=== PATIENT | female | born 1990 | race Caucasian/White ===

== ENCOUNTER 2018-06-26 11:48 | Emergency (ER) | payer MEDICAID ==
[~2018-06-26] VITALS: Ht 157.5 cm; Wt 54.0 kg
[2018-06-26 12:03] VITALS: BP 105/66
[2018-06-26 12:29] VITALS: BP 109/67
== END 2018-06-26 12:32 | disposition home or self-care (01) ==
LOC: MED 11:48
DX: R10.32 Left lower quadrant pain (principal); R19.7 Diarrhea, unspecified
CPT/HCPCS: 81002; 81025; 99283